=== PATIENT | male | born 1985 | race Two or more races ===

== ENCOUNTER 2023-04-29 12:16 | Observation (INO) ==
[2023-04-29 13:14] LABS: Basophils # (auto) 0.05 K/uL (0.00-0.20); Basophils % (auto) 0.4 %; Eosinophils # (auto) 0.13 K/uL (0.00-0.50); Eosinophils % (auto) 1.1 %; Hematocrit (blood only) 45.5 % (42.0-52.0); Hemoglobin 15.7 g/dl (14.0-18.0); Immature Granulocytes % (auto) 0.8 %; Lymphocytes # (auto) 1.51 K/uL (1.20-3.40); Lymphocytes % (auto) 12.7 %; Mean Corpuscular Hemoglobin 27.8 pg (25.0-34.0); Mean Corpuscular Hgb Conc 34.5 g/dL (32.0-36.0); Mean Corpuscular Volume 80.7 fL (80.0-100.0); Mean Platelet Volume 9.8 fL (9.4-12.4); Monocytes # (auto) 0.45 K/uL (0.11-0.59); Monocytes % (auto) 3.8 %; Neutrophils # (auto) 9.65 K/uL (1.40-6.50); Neutrophils % (auto) 81.2 %; Platelet Count 202 K/uL (130-400); RDW Coefficient of Variation 13.3 % (11.5-14.5); RDW Standard Deviation 38.5 fL (36.4-46.3); Red Blood Count 5.64 M/uL (4.70-6.10); White Blood Count 11.89 K/ul (4.8-10.8)
[2023-04-29 13:33] LABS: Albumin Globulin Ratio 1.4 (0.9-2); Albumin Level 4.5 gm/dl (3.4-5.0); Bilirubin,Total 1.7 mg/dl (0.2-1.0); Calcium 9.2 mg/dl (8.6-10.3); Creatinine Clr Calc Pharmacy 148.4 ml/min; Est GFR (African American) 124.5 ml/min; Est GFR (Non-African American) 107.4 ml/min; Globulin 3.2 gm/dl (2.5-4.0); Potassium 3.7 mmol/L (3.5-5.1); Total Protein 7.7 gm/dl (6.0-8.3)
[2023-04-29] MEDS ORDERED: KETOROLAC TROMETHAMINE 15 MG/ML VIAL IV STA (14:37)
[2023-04-29] MEDS ORDERED: SODIUM CHLORIDE 0.9% 1,000 ML IV ONE (14:37)
[2023-04-29] MEDS ORDERED: OPTIRAY 320 500ml IV ONE (15:10)
[2023-04-29 15:30] LABS: Appearance Urine Clear (Clear); Bilirubin Urine Negative (Negative); Blood Urine Negative (Negative); Color Urine Yellow; Glucose Urine UA Negative (Negative); Ketones Urine Trace (Negative); Leukocyte Esterase Urine Negative (Negative); Nitrite Urine Negative (Negative); Protein Urine Negative (Negative); Specific Gravity Urine 1.014 (1.000-1.030); Urobilinogen Urine Negative (Negative)
[2023-04-29] MEDS ORDERED: HYDROmorphone INJ 1 MG/ML SYRINGE IV STA (15:34)
--- NOTE | 2023-04-29 16:33 | CT Scan Report ---
CT abd pelvis IV con only CLINICAL HISTORY: abdominal pain TECHNIQUE: Helical axial images of the abdomen and pelvis were obtained and displayed. Automated dose lowering techniques and/or adjustment according to patient size were utilized for this exam. This e xam was performed with intravenous contrast. CT DOSE: 1728.45 mGy.cm COMPARISON: None available at the time of this dictation. FINDINGS: Lower chest: Bibasilar atelectasis versus scarring is seen. Liver: Hepatic steatosis is noted. Gallbladder and biliary tree: No calcified gallstones. Normal caliber wall. No intra- or extrahepatic biliary ductal dilation. Pancreas: Peripancreatic stranding is seen and there is suggestion of edema in the pancreatic head. N o definite evidence of necrosis. Spleen: Unremarkable. Adrenals: Unremarkable. Kidneys and ureters: Unremarkable. Bladder: Diffuse homogeneous wall thickening is seen. Reproductive organs: Unremarkable. Bowel: The appendix is normal. Lymph nodes Retroperitoneal: Unremarkable. Pelvic: Unremarkable. Mesenteric: Unremarkable. Peritoneum: Prominent fat stranding is seen about the pancreatic head. No peripancreatic fluid collec tions are seen. Vessels: Unremarkable. Abdominal wall: Unremarkable. Bones: Unremarkable. IMPRESSION: Findings are compatible with acute pancreatitis without acute peripancreatic fluid collections or def inite necrosis. ACT 112: Negative or not required by law. Electronically signed by: Rne Cassidy M.D. 04/29/2023 4:31 PM
--- NOTE | 2023-04-29 17:19 | History & Physical Report ---
Date of Service April 29, 2023 Assessment & Plan (1) Pancreatitis: Plan: - CTA/P: Suspicious for acute pancreatitis without peripancreatic fluid or necrosis. No abscesses seen. Suggestion of edema in the pancreatic head. Lipase 324 - T. bili 1.7, no transaminitis or elevated alkaline phosphatase. No evidence of cholelithiasis or choledocho on CT. CMP trended Patient on Sunday and preceding onset of symptoms did have acutely increased alcohol intake for the holidays including 500-600 cc of liquor and 12 beers the next day in addition to large amounts of fatty food.. Pain began approximately 24 hours after this. Most likely DDx alcohol induced pancreatitis Triglycerides pending. No prior history of diabetes or hypertriglyceridemia. Sample was not overtly lipemic at draw Calcium normal Clears as tolerated Tylenol first-line, hydromorphone on-call for breakthrough pain received 1 L saline in the ER. Clinically appears slightly hypovolemic with tacky mucous membranes and downtrending tachycardia starting to downtrend. A dditional 500 cc of LR ordered, followed by IVF M at 150 cc/h. (2) Hyponatremia: Plan: Mild, 132, asymptomatic Patient denies prior history of this. Suspect hypovolemic hyponatremia. IV fluid resuscitation pending, BMP trended Lipid panel pending. BSG 1 3 Plan DVT prophylaxis: Low risk, SCDs Disposition: Medical/surgical Diet: Clears as tolerated, once improving may advance to full liquids and then low-fat diet as tolerated CODE STATUS: Full History of Present Illness Primary Care Provider: NO PCP Sat evening worsening pain. Continued to worsen over next 24 hours, went to urgent care. Was referred to ER As urgent care was concerned for potential appendicitis Pain worsened with moving. Pain was greatest yesterday whenever he would try to eat, would cause 'severe pain, couldn't handle it.' Pain is the epigastrum and spreads slightly in no particular direction around the abdomen. Pain is worse on pressing his epgastrum, and much more severe when he tries to eat. Last BM was yesterday. Is from [place] and eats a lot of tumeric so bms are normally yellowish brown. No blood/melena/or ina colored stools. No history of gallbladder problems. No chronic medical problems. takes no chronic medications. Denies OTC medication use. Was drinking heavily over . Drank Sunday (Whiskey/liquor least 600-700ccs total)and (went to [place] with relatives and drank around 12 beers). Was eating grilled pork and a lot of fatty food both and as well. [place] Sunday, no ETOH sunday. had ice cream Sunday night and didn't have severe pain. Pain started Sunday. Progressed since then. Improved to 1-2 with rest and meds in ER, up to 8-10/10 when attempting to eat. No fever, chills, sweats, lightheadedness, dizziness Medical History: Reviewed Medications: Reviewed Surgical History: Reviewed Family history: Reviewed Allergies: Reviewed Social History: Cigarette smoker, 1 pack per 5 days. Declines nicotine patch. Social drinker, with recent increased use during the Code Status: Full Allergies Allergy/AdvReac Type Severity Reaction Status Date / Time No Known Allergies Allergy Unverified 04/29/23 15:45 Home Medications Medication Instructions Recorded Confirmed Type acetaminophen 500 mg tablet 1,000 - 1,500 mg PO Q6H PRN Pain 04/29/23 04/29/23 History (Tylenol Extra Strength) ibuprofen 200 mg tablet 600 mg PO Q6H PRN Pain 04/29/23 04/29/23 History omeprazole 20 mg tablet,delayed 0 mg PO DAILY PRN Acid Reflux 04/29/23 04/29/23 History release Past Med/Surg History Social History Smoking Status: Current every day smoker Feels Safe at Home: Yes Physical Exam Physical Exam: General: A&Ox3. NAD. Cooperative. HEENT: Atraumatic, normocephalic. Vision/hearing grossly Pulm: CTAB A&P. -wheezes, -rales, -rhonchi. Symmetrical chest rise. No increased work of breathing. No respiratory distress. Cardiac: Regular, slightly tachycardic. radial pulses intact and symmetrical. Abdominal: Epigastric tenderness to palpation. No right upper quadrant tenderness to palpation. Minimal left upper quadrant tenderness. Remaining abdomen soft, nontender and without rebound. Extremities: Warm, dry. Moves all extremities equally Results & Data Results & Data Vital Signs (Past 12 Hours) Vital Signs Temp Pulse Pulse Resp BP BP Pulse Ox 04/29/23 16:47 104 H 16 147/87 H 96 04/29/23 12:27 36.6 C 118 H 20 177/125 H 97 O2 Del Method 04/29/23 16:47 Room Air 04/29/23 12:27 Room Air PG Care Time/CCT Total # of Minutes Spent Total Time Spent with Patient: Total time spent is greater than 50% in coordination of care (as documented) at patient's floor/unit and/or counseling patient: Coding Level of Care Code 81570 INT INP/OBS CARE 2/55MIN Diagnoses Pancreatitis K85.90 Hyponatremia E87.1
[2023-04-29] MEDS ORDERED: ACETAMINOPHEN 325 MG TAB PO PRN (17:57)
[2023-04-29] MEDS ORDERED: LACTATED RINGER'S 1,000 ML IV SCH (18:00)
[2023-04-29] MEDS ORDERED: LACTATED RINGER'S 500 ML IV ONE (18:06)
[2023-04-29 19:14] LABS: Chol HDL Ratio 6.2 (0-5); Cholesterol 249 mg/dl (0-200); HDL Cholesterol 40 mg/dl; Triglycerides 871 mg/dl (0-150)
[2023-04-29] MEDS ORDERED: DEXTROSE 50% 50 ML SYRINGE IV PRN (20:00)
[2023-04-29] MEDS ORDERED: INSULIN REGULAR 250 UNITS in SODIUM CHLORIDE 0.9% 247.5 ML IV SCH (20:00)
[2023-04-29] MEDS: D5NSS + 20MEQ KCL 20 MEQ/1,000 ML BAG IV SCH (20:22)
--- NOTE | 2023-04-29 21:12 | Emergency Department Note ---
ED Provider Note History of Present Illness Chief Complaint: Abdominal Pain Stated Complaint: RT LOWER QUADRANT ABD PAIN Time Seen by Provider: 04/29/23 13:19 Source: patient Mode of arrival: ambulatory Limitations: no limitations This patient is a 37-year-old male who is presents to the emergency department for evaluation of upper abdominal pain. Patient reports that his pain started yesterday and has gradually worsened. He states pain worsens when he eats anything. No nausea/vomiting, changes in bowel movements, urinary symptoms or fevers. Patient reports pain is across the upper abdomen and is a burning and sharp pain. He does report that he had a history of similar symptoms a few weeks ago but it resolved on its own within a day. Patient states that he has not taken anything for the pain. He does admit to drinking alcohol and states that he drank fairly heavily for Thanksgiving 3 to 4 days ago. He otherwise denies any history of GI issues. Home Medications Medication Instructions Recorded Confirmed Type acetaminophen 500 mg tablet 1,000 - 1,500 mg PO Q6H PRN Pain 04/29/23 04/29/23 History (Tylenol Extra Strength) ibuprofen 200 mg tablet 600 mg PO Q6H PRN Pain 04/29/23 04/29/23 History omeprazole 20 mg tablet,delayed 0 mg PO DAILY PRN Acid Reflux 04/29/23 04/29/23 History release Allergies Allergy/AdvReac Type Severity Reaction Status Date / Time No Known Allergies Allergy Unverified 04/29/23 15:45 Past Med/Surg History Social History Smoking Status: Current every day smoker Feels Safe at Home: Yes Physical Exam Vital Signs Vital Signs - 24 hr 04/29/23 12:27 04/29/23 16:47 04/29/23 19:36 Temperature 36.6 C Temperature Source Temporal Artery Scan Pulse Rate 118 H Pulse Rate [Right Finger] 104 H 115 H Respiratory Rate 20 16 18 Respiratory Effort / Characteristics Non-Labored Non-Labored Spontaneous Non-Labored Spontaneous Respiratory Depth Normal Normal Normal Respiratory Pattern Regular Regular Blood Pressure 177/125 H Blood Pressure [Left Arm] 147/87 H 153/100 H Blood Pressure Mean 142 Blood Pressure Mean [Left Arm] 107 117 Blood Pressure Position [Left Arm] Semi-fowlers Semi-fowlers Pulse Oximetry 97 96 Oxygen Delivery Method Room Air Room Air Sepsis Recent Fever Within 48 Hours No Sepsis New/Unexplained Change in Mental Status No Sepsis Action Taken by Nursing No Action Required VITALS: Vitals are noted on the nurse's note and reviewed by myself. GENERAL: This is a 37-year-old male, in no acute distress, well-developed well- nourished. SKIN: The skin was without rashes. EYES: Pupils equal round and reactive to light and accommodation. No scleral icterus. HEART: Regular rate and rhythm without murmurs gallops or rubs. LUNGS: Clear to auscultation bilaterally without wheezes, rales or rhonchi. ABDOMEN: Positive bowel sounds x 4. Soft, tenderness to palpation in the epigastric region and across the upper abdomen. No guarding or rebound tenderness. NEURO: Patient was alert and oriented to person place and time. Course Administered Medications Insulin Human Regular 250 (units/ Sodium Chloride) 250 mls @ 11.07 mls/hr IV .[id number] [facility]; Protocol Stop: 05/29/23 19:59 Last Admin: 04/29/23 20:33 Dose: 0.1 units/kg/hr, 11.1 mls/hr Documented By: BRIANNA Co-signed By: KORINA Potassium Chloride/Dextrose/Sod Cl (D5nss + 20meq Kcl) 20 meq in 1,000 mls @ 75 mls/hr IV .[id number] [facility] Stop: 05/29/23 19:59 Last Admin: 04/29/23 20:22 Dose: 75 mls/hr Documented By: BRIANNA Discontinued Medications Hydromorphone HCl (Hydromorphone Inj 1 Mg/Ml Syringe) 1 mg IV NOW STA Stop: 04/29/23 15:35 Last Admin: 04/29/23 15:45 Dose: 1 mg Documented By: ACC Sodium Chloride (Nss) 1,000 mls @ 999 mls/hr IV .Q1H1M ONE Stop: 04/29/23 15:37 Last Infusion: 04/29/23 16:57 Dose: Infused Documented By: Admin: 04/29/23 15:34 Dose: 999 mls/hr Documented By: ACC Lactated Ringer's (Lr) 1,000 mls @ 125 mls/hr IV .Q8H [facility] Stop: 05/29/23 17:59 Last Infusion: 11/26/23 20:47 Dose: Infused Documented By: Infusion: 04/29/23 20:21 Dose: 0 mls/hr Documented By: Admin: 04/29/23 19:04 Dose: 125 mls/hr Documented By: BRIANNA Lactated Ringer's (Lr) 500 mls @ 999 mls/hr IV .Q31M ONE Stop: 04/29/23 18:36 Last Infusion: 04/29/23 19:35 Dose: Infused Documented By: Admin: 04/29/23 19:04 Dose: 999 mls/hr Documented By: BRIANNA Ioversol (Optiray 320 500ml) 89 ml IV ONCE ONE Stop: 04/29/23 15:11 Last Admin: 04/29/23 15:11 Dose: 89 ml Documented By: POLLO Ketorolac Tromethamine (Ketorolac Tromethamine 15 Mg/Ml Vial) 15 mg IV NOW STA Stop: 04/29/23 14:38 Last Admin: 04/29/23 14:57 Dose: 15 mg Documented By: ACC Medical Decision Making Differential Diagnosis Appendicitis, testicular torsion, infections, diverticulitis, UTI, obstruction, mesenteric ischemia, aortic pathology, inflammatory bowel disease, renal colic, PUD, pancreatitis, biliary pathology, hernia, volvulus, constipation, as well as other pathologies. Home Medications was personally reviewed by me Laboratory Data Attestation: I reviewed the patient's lab results. 04/29/23 13:03 04/29/23 13:03 Lab Results 04/29/23 04/29/23 04/29/23 Range/Units 12:30 13:03 15:19 WBC 11.89 H (4.8-10.8) K/ul RBC 5.64 (4.70-6.10) M/uL Hgb 15.7 (14.0-18.0) g/dl Hct 45.5 (42.0-52.0) % MCV 80.7 (80.0-100.0) fL MCH 27.8 (25.0-34.0) pg MCHC 34.5 (32.0-36.0) g/dL RDW Std Deviation 38.5 (36.4-46.3) fL RDW Coeff of Rosette 13.3 (11.5-14.5) % Plt Count 202 (130-400) K/uL MPV 9.8 (9.4-12.4) fL Immature Gran % (Auto) 0.8 % Neut % (Auto) 81.2 % Lymph % (Auto) 12.7 % Dolores % (Auto) 3.8 % Eos % (Auto) 1.1 % Baso % (Auto) 0.4 % Neut # (Auto) 9.65 H (1.40-6.50) K/uL Lymph # (Auto) 1.51 (1.20-3.40) K/uL Dolores # (Auto) 0.45 (0.11-0.59) K/uL Eos # (Auto) 0.13 (0.00-0.50) K/uL Baso # (Auto) 0.05 (0.00-0.20) K/uL Immature Gran # (Auto) 0.10 (0.01-0.20) K/uL Sodium 132 L (136-145) mmol/L Potassium 3.7 (3.5-5.1) mmol/L Chloride 98 (98-107) mmol/L Carbon Dioxide 26 (21-32) mmol/L Anion Gap 8 (3-11) BUN 12 (6-23) mg/dl Creatinine 0.92 (0.6-1.4) mg/dl Est Cr Clr Drug Dosing 148.4 ml/min Est GFR ( Amer) 124.5 ml/min Est GFR (Non-Af Amer) 107.4 ml/min BUN/Creatinine Ratio 13.0 (10-20) Glucose 134 H (70-99(Fasting)) mg/dl POC Glucose (70-99) mg/dl Calcium 9.2 (8.6-10.3) mg/dl Total Bilirubin 1.7 H (0.2-1.0) mg/dl AST 23 (13-39) U/L ALT 31 (7-52) U/L Alkaline Phosphatase 72 (34-104) U/L Total Protein 7.7 (6.0-8.3) gm/dl Albumin 4.5 (3.4-5.0) gm/dl Globulin 3.2 (2.5-4.0) gm/dl Albumin/Globulin Ratio 1.4 (0.9-2) Triglycerides 871 H (0-150) mg/dl Cholesterol 249 H (0-200) mg/dl LDL Cholesterol, Calc TNP VLDL Cholesterol, Calc TNP HDL Cholesterol 40 mg/dl Cholesterol/HDL Ratio 6.2 H (0-5) Lipase 324 H (11-82) U/L Urine Color Yellow Urine Appearance Clear (Clear) Urine pH 7.0 (4.5-7.5) Ur Specific Clare 1.014 (1.000-1.030) Urine Protein Negative (Negative) Urine Glucose (UA) Negative (Negative) Urine Ketones Trace H (Negative) Urine Blood Negative (Negative) Urine Nitrite Negative (Negative) Urine Bilirubin Negative (Negative) Urine Urobilinogen Negative (Negative) Ur Leukocyte Esterase Negative (Negative) 04/29/23 Range/Units 20:31 WBC (4.8-10.8) K/ul RBC (4.70-6.10) M/uL Hgb (14.0-18.0) g/dl Hct (42.0-52.0) % MCV (80.0-100.0) fL MCH (25.0-34.0) pg MCHC (32.0-36.0) g/dL RDW Std Deviation (36.4-46.3) fL RDW Coeff of Rosette (11.5-14.5) % Plt Count (130-400) K/uL MPV (9.4-12.4) fL Immature Gran % (Auto) % Neut % (Auto) % Lymph % (Auto) % Dolores % (Auto) % Eos % (Auto) % Baso % (Auto) % Neut # (Auto) (1.40-6.50) K/uL Lymph # (Auto) (1.20-3.40) K/uL Dolores # (Auto) (0.11-0.59) K/uL Eos # (Auto) (0.00-0.50) K/uL Baso # (Auto) (0.00-0.20) K/uL Immature Gran # (Auto) (0.01-0.20) K/uL Sodium (136-145) mmol/L Potassium (3.5-5.1) mmol/L Chloride (98-107) mmol/L Carbon Dioxide (21-32) mmol/L Anion Gap (3-11) BUN (6-23) mg/dl Creatinine (0.6-1.4) mg/dl Est Cr Clr Drug Dosing ml/min Est GFR ( Amer) ml/min Est GFR (Non-Af Amer) ml/min BUN/Creatinine Ratio (10-20) Glucose (70-99(Fasting)) mg/dl POC Glucose 122 H (70-99) mg/dl Calcium (8.6-10.3) mg/dl Total Bilirubin (0.2-1.0) mg/dl AST (13-39) U/L ALT (7-52) U/L Alkaline Phosphatase (34-104) U/L Total Protein (6.0-8.3) gm/dl Albumin (3.4-5.0) gm/dl Globulin (2.5-4.0) gm/dl Albumin/Globulin Ratio (0.9-2) Triglycerides (0-150) mg/dl Cholesterol (0-200) mg/dl LDL Cholesterol, Calc VLDL Cholesterol, Calc HDL Cholesterol mg/dl Cholesterol/HDL Ratio (0-5) Lipase (11-82) U/L Urine Color Urine Appearance (Clear) Urine pH (4.5-7.5) Ur Specific Clare (1.000-1.030) Urine Protein (Negative) Urine Glucose (UA) (Negative) Urine Ketones (Negative) Urine Blood (Negative) Urine Nitrite (Negative) Urine Bilirubin (Negative) Urine Urobilinogen (Negative) Ur Leukocyte Esterase (Negative) Imaging Data Attestation: I personally reviewed and interpreted this imaging study as follows: Radiologist's Impression: Abdomen/Pelvis CT 04/29/23 12:32 CT abd pelvis IV con only CLINICAL HISTORY: abdominal pain TECHNIQUE: Helical axial images of the abdomen and pelvis were obtained and displayed. Automated dose lowering techniques and/or adjustment according to patient size were utilized for this exam. This exam was performed with intravenous contrast. CT DOSE: 1728.45 mGy.cm COMPARISON: None available at the time of this dictation. FINDINGS: Lower chest: Bibasilar atelectasis versus scarring is seen. Liver: Hepatic steatosis is noted. Gallbladder and biliary tree: No calcified gallstones. Normal caliber wall. No intra- or extrahepatic biliary ductal dilation. Pancreas: Peripancreatic stranding is seen and there is suggestion of edema in the pancreatic head. No definite evidence of necrosis. Spleen: Unremarkable. Adrenals: Unremarkable. Kidneys and ureters: Unremarkable. Bladder: Diffuse homogeneous wall thickening is seen. Reproductive organs: Unremarkable. Bowel: The appendix is normal. Lymph nodes Retroperitoneal: Unremarkable. Pelvic: Unremarkable. Mesenteric: Unremarkable. Peritoneum: Prominent fat stranding is seen about the pancreatic head. No peripancreatic fluid collections are seen. Vessels: Unremarkable. Abdominal wall: Unremarkable. Bones: Unremarkable. IMPRESSION: Findings are compatible with acute pancreatitis without acute peripancreatic fluid collections or definite necrosis. ACT 112: Negative or not required by law. Electronically signed by: Ren Cassidy M.D. 04/29/2023 4:31 PM MDM Narrative Continuous athletic monitor: Order was placed for continuous athletic monitor. Patient was placed on the athletic monitor. Patient was noted to be in sinus tachycardia at an initial rate of 118 bpm. The patient is a 37-year-old male who presents today complaining of upper abdominal pain. Labs revealed a mild leukocytosis. Lipase is elevated at 324. CT does show evidence of pancreatitis. This is consistent with patient's symptoms. He did require Dilaudid for pain. He was treated with IV fluids. As this is his first episode of pancreatitis, I do think he needs admission for further work-up and care. The case was discussed with the [facility] hospitalist, who agreed to evaluate the patient for further care. Impression Acute pancreatitis Discharge Plan Visit Data Chief Complaint: Abdominal Pain Stated Complaint: RT LOWER QUADRANT ABD PAIN ED Provider: Sigifredo Kemp ED Midlevel Provider: Na Kaur Discharge Problem: Acute pancreatitis Forms Stand Alone Forms: [facility] Prescriptions Prescriptions: No Action acetaminophen [Tylenol Extra Strength] 500 mg Tablet 1,000 - 1,500 mg PO Q6H PRN (Reason: Pain) ibuprofen 200 mg Tablet 600 mg PO Q6H PRN (Reason: Pain) omeprazole 20 mg Tablet,Delayed Release (Dr/Ec) 0 mg PO DAILY PRN (Reason: Acid Reflux) Referrals Referrals: PCP,NO [Primary Care Provider] - Discharge Problem: Acute pancreatitis Qualifiers: Pancreatitis type: unspecified pancreatitis type Acute pancreatitis complication: no infection or necrosis Qualified Code(s): K85.90 - Acute pancreatitis without necrosis or infection, unspecified
[2023-04-29 21:19] LABS: BUN Creatinine Ratio 13.4 (10-20); Calcium 8.6 mg/dl (8.6-10.3); Creatinine Clr Calc Pharmacy 140.7 ml/min; Est GFR (African American) 116.7 ml/min; Est GFR (Non-African American) 100.7 ml/min; Potassium 3.7 mmol/L (3.5-5.1)
[2023-04-30] MEDS: gemfibroziL 600 MG TAB PO SCH ×2 (00:42→08:57)
[2023-04-30] MEDS: HYDROmorphone INJ 0.5 MG/0.5 ML SYR IV PRN ×2 (00:44→20:18)
[2023-04-30] MEDS: ACETAMINOPHEN 325 MG TAB PO PRN ×2 (04:18→09:00)
[2023-04-30] MEDS: D5NSS + 20MEQ KCL 20 MEQ/1,000 ML BAG IV SCH ×2 (08:57→20:49)
[2023-04-30 09:53] LABS: Basophils # (auto) 0.04 K/uL (0.00-0.20); Basophils % (auto) 0.3 %; Eosinophils # (auto) 0.08 K/uL (0.00-0.50); Eosinophils % (auto) 0.7 %; Hematocrit (blood only) 42.3 % (42.0-52.0); Hemoglobin 14.1 g/dl (14.0-18.0); Immature Granulocytes # (auto) 0.13 K/uL (0.01-0.20); Immature Granulocytes % (auto) 1.1 %; Lymphocytes # (auto) 1.26 K/uL (1.20-3.40); Lymphocytes % (auto) 10.9 %; Mean Corpuscular Hemoglobin 27.8 pg (25.0-34.0); Mean Corpuscular Hgb Conc 33.3 g/dL (32.0-36.0); Mean Corpuscular Volume 83.3 fL (80.0-100.0); Mean Platelet Volume 9.7 fL (9.4-12.4); Monocytes # (auto) 0.67 K/uL (0.11-0.59); Monocytes % (auto) 5.8 %; Neutrophils # (auto) 9.34 K/uL (1.40-6.50); Neutrophils % (auto) 81.2 %; Platelet Count 171 K/uL (130-400); RDW Coefficient of Variation 14.1 % (11.5-14.5); RDW Standard Deviation 42.3 fL (36.4-46.3); Red Blood Count 5.08 M/uL (4.70-6.10); White Blood Count 11.52 K/ul (4.8-10.8)
[2023-04-30 10:06] LABS: Albumin Level 3.9 gm/dl (3.4-5.0); BUN Creatinine Ratio 11.4 (10-20); Bilirubin Direct 0.3 mg/dl (0-0.2); Bilirubin,Total 1.8 mg/dl (0.2-1.0); Creatinine Clr Calc Pharmacy 155.2 ml/min; Est GFR (Non-African American) 111.3 ml/min; Potassium 3.5 mmol/L (3.5-5.1); Total Protein 6.9 gm/dl (6.0-8.3)
[2023-04-30] MEDS ORDERED: ONDANSETRON INJ 2 MG/ML 2 ML VIAL IV PRN (11:33)
--- NOTE | 2023-04-30 18:51 | Hospitalist Progress Note ---
Date of Service April 30, 2023 Assessment & Plan (1) Pancreatitis: Plan: CTA/P: Suspicious for acute pancreatitis without peripancreatic fluid or necrosis. No abscesses seen. Suggestion of edema in the pancreatic head. Lipase mildly elevated on admission has improved. This was probably alcohol induced. Triglyceride levels are moderately elevated but not high enough to cause acute pancreatitis. No indication for insulin drip at this time. Will allow clear liquids and advance as tolerated. IV fluids decreased to 80 mL/h. (2) Hyponatremia: Plan: Mild on admission. Asymptomatic. Serial labs. Plan Hopeful discharge to home tomorrow, May 01 Admission and Anticipated Discharge Date Admission Date: April 29, 2023 Subjective Alert and oriented. No new problems. Acute pancreatitis appears to be due to excess alcohol intake recently. Insulin drip has been discontinued. Triglyceride level is moderately elevated but not high enough to cause acute pancreatitis. Gemfibrozil has been discontinued. AST and ALT are normal. Diet has been advanced and IV fluids decreased. Hopefully he can go home tomorrow, May 01 Review of Systems 2 Review of Systems: Constitutional-no fever or chills ENT-no blurred vision, no double vision, no epistaxis, no sore throat Respiratory-no cough, no wheezing, no shortness of breath Cardiac-no palpitations, no chest pain, no syncope GI-no nausea, vomiting, diarrhea, melena, hematochezia -no urinary retention, no urinary incontinence, no dysuria, no hematuria Musculoskeletal-no joint pain, no muscle tenderness Skin-no bruising, no rashes, no pruritus Neuro-no isolated weakness, no paresthesia, no weakness Psych-no depression, no anxiety Physical Exam 2 Physical Exam: General-alert and oriented x3, no fevers, no chills HEENT-head atraumatic and normocephalic, pupils equal and reactive to light, extraocular muscles intact Neck-no lymphadenopathy or thyromegaly, trachea midline Chest-clear to auscultation percussion. No rales wheezing or rhonchi Cardiac-mildly tachycardic regular rate and rhythm, normal S1 and S2 Abdomen-normal bowel sounds, no hepatosplenomegaly. Mild epigastric tenderness. No rebound tenderness. No masses Extremities-no cyanosis, clubbing, or edema Neuro-cranial nerves II through XII intact, motor and sensory function within normal limits, strength symmetrical, no focal deficits Psych-normal affect, normal mood Results & Data Results & Data Vital Signs (Past 12 Hours) Vital Signs Temp Pulse Pulse Resp BP Pulse Ox O2 Del Method 04/30/23 15:22 37.2 C 107 H 18 142/89 H 94 Room Air 04/30/23 14:09 105 H 04/30/23 11:45 36.5 C 101 H 17 137/80 95 Room Air 04/30/23 07:53 37.0 C 104 H 18 149/83 H 96 Room Air Laboratory Results 04/30/23 09:21 04/30/23 09:21 PG Care Time/CCT Total # of Minutes Spent Total Time Spent with Patient: Total time spent is greater than 50% in coordination of care (as documented) at patient's floor/unit and/or counseling patient: Coding Level of Care Code 60699 SUB INP/OBS CARE 3/50MIN Diagnoses Pancreatitis K85.90 Hyponatremia E87.1
[2023-04-30] MEDS: D5W AND NSS 1,000 ML IV SCH (19:08)
[2023-05-01 05:44] LABS: Basophils # (auto) 0.05 K/uL (0.00-0.20); Basophils % (auto) 0.4 %; Eosinophils # (auto) 0.15 K/uL (0.00-0.50); Eosinophils % (auto) 1.3 %; Hematocrit (blood only) 41.9 % (42.0-52.0); Hemoglobin 14.1 g/dl (14.0-18.0); Immature Granulocytes # (auto) 0.26 K/uL (0.01-0.20); Immature Granulocytes % (auto) 2.2 %; Lymphocytes # (auto) 1.86 K/uL (1.20-3.40); Lymphocytes % (auto) 15.9 %; Mean Corpuscular Hgb Conc 33.7 g/dL (32.0-36.0); Mean Corpuscular Volume 83.3 fL (80.0-100.0); Mean Platelet Volume 9.5 fL (9.4-12.4); Monocytes # (auto) 0.74 K/uL (0.11-0.59); Monocytes % (auto) 6.3 %; Neutrophils # (auto) 8.66 K/uL (1.40-6.50); Neutrophils % (auto) 73.9 %; Platelet Count 168 K/uL (130-400); RDW Coefficient of Variation 14.1 % (11.5-14.5); RDW Standard Deviation 42.7 fL (36.4-46.3); Red Blood Count 5.03 M/uL (4.70-6.10); White Blood Count 11.72 K/ul (4.8-10.8)
[2023-05-01 06:04] LABS: Calcium 8.9 mg/dl (8.6-10.3); Creatinine Clr Calc Pharmacy 120.8 ml/min; Est GFR (African American) 97.1 ml/min; Est GFR (Non-African American) 83.7 ml/min; Potassium 4.5 mmol/L (3.5-5.1)
[2023-05-01] MEDS: D5W AND NSS 1,000 ML IV SCH (06:49)
[2023-05-01] MEDS: HYDROmorphone INJ 0.5 MG/0.5 ML SYR IV PRN (06:49)
[2023-05-01] MEDS ORDERED: METOPROLOL TARTRATE 50 MG TAB PO SCH (10:15)
--- NOTE | 2023-05-01 12:30 | Discharge Summary ---
Date of Service May 01, 2023 Admission HPI Per Admitting Provider Sat evening worsening pain. Continued to worsen over next 24 hours, went to urgent care. Was referred to ER As urgent care was concerned for potential appendicitis Pain worsened with moving. Pain was greatest yesterday whenever he would try to eat, would cause 'severe pain, couldn't handle it.' Pain is the epigastrum and spreads slightly in no particular direction around the abdomen. Pain is worse on pressing his epgastrum, and much more severe when he tries to eat. Last BM was yesterday. Is from [facility] and eats a lot of tumeric so bms are normally yellowish brown. No blood/melena/or ina colored stools. No history of gallbladder problems. No chronic medical problems. takes no chronic medications. Denies OTC medication use. Was drinking heavily over . Drank Sunday (Whiskey/liquor least 600-700ccs total)and (went to [place] with relatives and drank around 12 beers). Was eating grilled pork and a lot of fatty food both and as well. [place] Sunday, no ETOH sunday. had ice cream Sunday night and didn't have severe pain. Pain started Sunday. Progressed since then. Improved to 1-2 with rest and meds in ER, up to 8-10/10 when attempting to eat. No fever, chills, sweats, lightheadedness, dizziness Medical History: Reviewed Medications: Reviewed Surgical History: Reviewed Family history: Reviewed Allergies: Reviewed Social History: Cigarette smoker, 1 pack per 5 days. Declines nicotine patch. Social drinker, with recent increased use during the s Code Status: Full Principal Diagnosis Alcohol induced pancreatitis, hypertriglyceridemia, sinus tachycardia Discharge Exam General-alert and oriented x3, no fevers, no chills HEENT-head atraumatic and normocephalic, pupils equal and reactive to light, extraocular muscles intact Neck-no lymphadenopathy or thyromegaly, trachea midline Chest-clear to auscultation percussion. No rales wheezing or rhonchi Cardiac-mildly tachycardic regular rate and rhythm, normal S1 and S2 Abdomen-normal bowel sounds, no hepatosplenomegaly. Mild epigastric tenderness. No rebound tenderness. No masses Extremities-no cyanosis, clubbing, or edema Neuro-cranial nerves II through XII intact, motor and sensory function within normal limits, strength symmetrical, no focal deficits Psych-normal affect, normal mood Discharge Data Allergies Allergy/AdvReac Type Severity Reaction Status Date / Time No Known Allergies Allergy Unverified 04/29/23 15:45 Consultations 04/29/23 19:03 ED Decision to Admit Stat Ordered Studies 04/29/23 12:32 CT abd pelvis IV con only Stat Hospital Course (1) Pancreatitis: CTA/P: Suspicious for acute pancreatitis without peripancreatic fluid or necrosis. No abscesses seen. Suggestion of edema in the pancreatic head. Lipase mildly elevated on admission has improved. This was probably alcohol induced. Triglyceride levels are moderately elevated but not high enough to cause acute pancreatitis. No indication for insulin drip at this time. Diet has been advanced and well-tolerated. Lipase has returned to normal levels. He is currently asymptomatic. IV fluids have been discontinued. (2) Hyponatremia: Mild on admission. Asymptomatic. Serial labs. (3) Sinus tachycardia: Metoprolol has been started. He will monitor his blood pressure and heart rate at home. He will [facility] Plan Home today, May 01 Total Time Total Time Spent Total Time Spent (In Minutes): 45 minutes Discharge Plan Discharge Items Patient Disposition: Home - Self-Care Reason For Visit: ACUTE PANCREATITIS, SUSPECT ETOH INDUCE Discharge Diagnosis: Alcohol induced pancreatitis, hypertriglyceridemia, sinus tachycardia Activity: Resume your previous activity Non-emergency contact: Primary Care Provider Call non-emergency contact if: your symptoms worsen Follow-up/Referrals: Christina Frank DO [Outside Practitioners] - 05/11/23 2:25 pm Diet: Regular and Low Fat Addtl Attending Provider Instructions: Take metoprolol 50 mg twice daily for heart rate and blood pressure control Pending Studies at Discharge: No Stand-Alone Forms: My [employer], Smoking Cessation Medications and DC Order Prescriptions: New metoprolol tartrate 50 mg Tablet 50 mg PO BID Qty: 60 0RF Continued acetaminophen [Tylenol Extra Strength] 500 mg Tablet 1,000 - 1,500 mg PO Q6H PRN (Reason: Pain) ibuprofen 200 mg Tablet 600 mg PO Q6H PRN (Reason: Pain) omeprazole 20 mg Tablet,Delayed Release (Dr/Ec) 0 mg PO DAILY PRN (Reason: Acid Reflux) Discharge Orders: Discharge Order (Routine); Ordered 05/01/23 Ordered By: Heber Zamudio Admission Data Admit Date/Time: 04/29/23 17:54 Attending Provider: Heber Zamudio Admit Provider: Juan Vo Primary Care Provider: PCP,NO Other Providers: Juan Vo Coding Level of Care Code 99158 INP/OBS DISCH >30 MIN Diagnoses Pancreatitis K85.90 Hyponatremia E87.1 Sinus tachycardia R00.0
--- NOTE | 2023-05-01 14:10 | Electrocardiogram Report ---
Test Reason : Blood Pressure : / mmHG Vent. Rate : 103 BPM Atrial Rate : 103 BPM P-R Int : 164 ms QRS Dur : 124 ms QT Int : 368 ms P-R-T Axes : 059 -48 055 degrees QTc Int : 482 ms Sinus tachycardia Left anterior fascicular block Left ventricular hypertrophy with QRS widening Abnormal ECG No previous ECGs available Confirmed by Ric Guerrier ([id number]) on 05/01/2023 2:10:18 PM Referred By: REFERRED SELF Confirmed By:Phong Guerrier
== END 2023-05-01 14:50 | disposition home or self-care (01) ==
LOC: ED 12:16 → 4W 12:16 → SUATTDRO 17:54 → 4W 23:40